=== PATIENT | male | born 2000 | race Native Hawaiian/Other Pacific Islander ===

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

== ENCOUNTER 2020-01-01 13:41 | Emergency (ER) | payer OTHER ==
[~2020-01-01] VITALS: Ht 180.3 cm; Wt 72.6 kg
[2020-01-01 14:14] VITALS: BP 105/55; TEMP 98.1
== END 2020-01-01 14:15 | disposition home or self-care (01) ==
LOC: ED 13:41
DX: Z04.89 Encounter for examination and observation for other specified reasons (principal); Y04.0XXA Assault by unarmed brawl or fight, initial encounter; Y92.098 Other place in other non-institutional residence as the place of occurrence of the external cause
CPT/HCPCS: 99281

== ENCOUNTER 2020-03-09 19:31 | Emergency (ER) | payer OTHER ==
[~2020-03-09] VITALS: Ht 182.9 cm; Wt 72.6 kg
[2020-03-09 20:24] VITALS: BP 112/66; TEMP 98.4
== END 2020-03-09 20:24 | disposition home or self-care (01) ==
LOC: ED 19:31
DX: R11.2 Nausea with vomiting, unspecified (principal); S39.012A Strain of muscle, fascia and tendon of lower back, initial encounter
CPT/HCPCS: 99282

== ENCOUNTER 2021-11-28 13:31 | Emergency (ER) | payer OTHER ==
[~2021-11-28] VITALS: Ht 180.3 cm; Wt 77.1 kg
[2021-11-28 13:38] VITALS: TEMP 98.7
[2021-11-28] MEDS ORDERED: AMOX875T8 PO (14:28)
[2021-11-28 14:32] VITALS: BP 120/87
== END 2021-11-28 14:32 | disposition home or self-care (01) ==
LOC: ED 13:31
DX: J20.9 Acute bronchitis, unspecified (principal); J02.8 Acute pharyngitis due to other specified organisms; F17.210 Nicotine dependence, cigarettes, uncomplicated; Z20.822 Contact with and (suspected) exposure to COVID-19
CPT/HCPCS: 87502; 87635; 87651; 99283; U0003